=== PATIENT | male | born 1960 | race Caucasian/White ===

== ENCOUNTER → 2016-10-24 | Outpatient (CLI) | payer BC ==
[~2016-10-24] MED LIST: AMARYL2 MG PO; ASPIRIN EC81 MG PO; CLARITIN10 MG PO; CLEOCIN150 MG PO; COLACE100 MG PO; CPAP INH; DILAUDID 2MG(HYD2 MG PO; GLUCOPHAGE XR500 M1 PO; HYDROCHLOROTHIA25 MG PO; METOPROLOL TART50 MG PO; MOBIC15 MG PO; NEURONTIN300 MG PO; NITROSTAT0.4 MG SL; NORVASC10 MG PO; PRAVACHOL80 MG PO; PRINIVIL (ZESTRI5 MG PO; SINGULAIR10 MG PO; TYLENOL/COD#3**1 TAB PO; ULTRAM50 MG PO; VALIUM5 MG PO; XARELTO10 MG PO; XYZAL5 MG PO; [UNRECOGNIZED DRUG - OTHER] TOP
== END | disposition disaster alternative care site (69) ==
LOC: GLAB 17:28
DX: M25.552 Pain in left hip (principal)

== ENCOUNTER → 2016-11-29 | Outpatient (CLI) | payer BC ==
[2016-11-29 16:22] LABS: ALBUMIN 3.8 gm/dL (3.5-5.0); ANION GAP 11.4 (10.0-19.0); CALCIUM 8.9 mg/dL (8.5-10.5); CREATININE 1.1 mg/dL (0.6-1.3); POTASSIUM 4.4 mMol/L (3.7-5.1); TOTAL BILIRUBIN 0.4 mg/dL (0.0-1.5); TOTAL PROTEIN 7.6 g/dL (6.0-8.4)
== END | disposition disaster alternative care site (69) ==
LOC: GLAB 15:40
PROVIDERS: Orthopaedic Surgery
DX: Z01.818 Encounter for other preprocedural examination (principal); M25.559 Pain in unspecified hip